=== PATIENT | female | born 1965 | race Caucasian/White ===

== ENCOUNTER 2022-05-28 12:32 | Emergency (ER) | payer BC ==
[~2022-05-28] VITALS: Ht 175.3 cm; Wt 112.5 kg
[2022-05-28] MEDS ORDERED: PREDNISONE 20 MG TAB PO ONE (13:15)
[2022-05-28] MEDS ORDERED: HYDROCODONE/APAP 10MG-325MG TAB PO ONE (13:15)
[2022-05-28] MEDS ORDERED: NAPROXEN 250 MG TAB PO ONE (13:15)
[2022-05-28] MEDS ORDERED: METHOCARBAMOL 500 MG TAB PO ONE (13:15)
[2022-05-28] MEDS ORDERED: PREDNISONE 20 MG TAB ONE (13:31)
[2022-05-28] MEDS ORDERED: PREDNISONE50 MG PO (14:37)
[2022-05-28] MEDS ORDERED: METHOCARBAMOL750 MG PO (14:37)
[2022-05-28] MEDS ORDERED: NAPROXEN500 MG PO (14:37)
== END 2022-05-28 14:40 | disposition home or self-care (01) ==
LOC: ER 13:08
DX: M54.42 Lumbago with sciatica, left side (principal); I10 Essential (primary) hypertension; E78.5 Hyperlipidemia, unspecified
CPT/HCPCS: 72100; 99282; J7512